=== PATIENT | female | born 1995 | race Two or more races ===

== ENCOUNTER 2016-06-22 09:59 | Outpatient (CLI) | payer OTHER | END 2016-06-22 10:00 | disposition home or self-care (01) | DX: Z36 Encounter for antenatal screening of mother (principal); Z3A.10 10 weeks gestation of pregnancy; Z34.01 Encounter for supervision of normal first pregnancy, first trimester ==

== ENCOUNTER 2016-07-04 13:42 | Outpatient (CLI) | payer OTHER | END 2016-07-04 13:43 | disposition home or self-care (01) | DX: Z20.1 Contact with and (suspected) exposure to tuberculosis (principal) ==

== ENCOUNTER 2016-08-07 07:19 | Outpatient (CLI) | payer OTHER | END 2016-08-07 07:20 | disposition home or self-care (01) | DX: Z34.82 Encounter for supervision of other normal pregnancy, second trimester (principal) ==

== ENCOUNTER 2016-09-28 09:50 | Outpatient (CLI) | payer OTHER | END 2016-09-28 09:51 | disposition home or self-care (01) | DX: Z36 Encounter for antenatal screening of mother (principal) ==

== ENCOUNTER 2016-10-04 13:24 | Outpatient (CLI) | payer OTHER | END 2016-10-04 13:25 | disposition home or self-care (01) | DX: Z36 Encounter for antenatal screening of mother (principal) ==

== ENCOUNTER 2016-10-05 09:56 | Outpatient (CLI) | payer OTHER | END 2016-10-05 09:57 | disposition home or self-care (01) | DX: Z36 Encounter for antenatal screening of mother (principal) ==

== ENCOUNTER 2016-11-24 08:00 | Outpatient (CLI) | payer OTHER | END 2016-11-24 08:01 | disposition home or self-care (01) | LOC: LAB.R 08:00 | PROVIDERS: ATTEND Nurse Practitioner Obstetrics & Gynecology | DX: Z36 Encounter for antenatal screening of mother (principal) | CPT/HCPCS: 87081 ==

== ENCOUNTER 2016-11-29 14:34 | Outpatient (CLI) | payer OTHER ==
--- NOTE | 2016-11-30 08:12 | Ultrasound Report ---
OB FOLLOWUP: 11/29/2016 CLINICAL HISTORY: growth and screening. TECHNIQUE: Real-time scanning was performed with client relations representative static images obtained. LAST MENSTRUAL PERIOD 03/13/2016 Clinical Age 37 weeks 2 days US Age 36 weeks 6 days EFW Hadlock 3377 g EFW% Hadlock 70.59% Heart Rate 146 bpm EDC 12/18/2016 US EDC 12/21/2016 BPD Hadlock --weeks - days; Mean mm 70.5 HC Hadlock -- weeks - days; Mean mm 350.6 AC Hadlock 37 weeks 1 day; Mean mm 332.9 FL Hadlock 36 weeks 4 days; Mean mm 71.4 Presentation cephalic Placental Location anterior Cervical Length 3.1 cm Amniotic Fluid 20.7 cm FINDINGS: A single fetus is noted in vertex position. Composite gestational age by ultrasound today is 36 weeks 6 days. EDC by ultrasound today is 12/21/2016. The present gestational age is only 3 days less advanced than expected as calculated from initial ultrasound exam. This degree of growth is within normal limits. Estimated weight today is 3377 grams. This is in the 70.59 percentile for expected gestational age. heart rate is 146 beats per minute. At this stage in gestation, anatomy is not optimally visualized. The head, body, four-chamber view of the heart, and bladder show no significant abnormality. The placenta is anterior. The amount of amniotic fluid is at the upper limits of normal measuring 20.7 cm. movement was noted during scan. IMPRESSION: 1. SINGLE FETUS IS NOTED IN VERTEX POSITION. PRESENT GESTATIONAL AGE BY ULTRASOUND TODAY IS 36 WEEKS 6 DAYS. PRESENT GESTATIONAL AGE IS ONLY 3 DAYS LESS ADVANCED THAN EXPECTED CALCULATED FROM INITIAL ULTRASOUND EXAM. THIS DEGREE OF GROWTH IS WITHIN NORMAL LIMITS. 2. WEIGHT IS IN THE 70.59 PERCENTILE FOR EXPECTED GESTATIONAL AGE. THIS IS WITHIN NORMAL LIMITS. 3. ANATOMY SHOWED NO OBVIOUS ABNORMALITY ON TODAY'S EXAM. 4. ANTERIOR GRADE 2 PLACENTA IS NOTED. 5. AMNIOTIC FLUID VOLUME INDEX IS AT THE UPPER LIMITS OF NORMAL MEASURING 20.7 CM. MTDD
== END 2016-11-29 14:35 | disposition home or self-care (01) ==
LOC: DI 14:34
PROVIDERS: ATTEND Nurse Practitioner Obstetrics & Gynecology
DX: Z36 Encounter for antenatal screening of mother (principal)
CPT/HCPCS: 76816

== ENCOUNTER 2016-12-15 12:50 | Outpatient (CLI) | payer OTHER, MEDICAID ==
[2016-12-15 13:46] LABS: BILIRUBIN,URINE NEGATIVE (NEGATIVE)
[2016-12-15 13:47] LABS: UA CHARGE (STRIP ONLY) YES; UR CULTURE IF IND NOT INDICATED
[2016-12-15 13:59] LABS: EOSINOPHILS # (AUTO) 0.2 10^3/uL (0.0-0.7); HGB - HEMOGLOBIN 12.5 g/dL (12.0-16.0); LYMPHOCYTES # (AUTO) 1.5 10^3/uL (1.5-3.5); MONOCYTES # (AUTO) 0.7 10^3/uL (0.0-1.0); MONOCYTES % (AUTO) 6.1 %; NEUTROPHILS # (AUTO) 9.6 10^3/uL (1.5-6.6)
[2016-12-15 14:14] VITALS: BP 130/80
[2016-12-15 14:20] LABS: BASOPHILS % (AUTO) 0.2 %; EOSINOPHILS % (AUTO) 1.9 %; HCT - HEMATOCRIT 36.7 % (37.0-47.0); LYMPHOCYTES % (AUTO) 12.4 %; MEAN CORPUSCULAR HEMOGLOBIN 30.2 pg (27.0-31.0); MEAN CORPUSCULAR HGB CONC 34.1 g/dL (32.0-36.0); MEAN CORPUSCULAR VOLUME 88.7 fL (81.0-99.0); MEAN PLATELET VOLUME 9.8 fL (7.9-10.8); NEUTROPHILS % (AUTO) 79.4 %; RED BLOOD COUNT 4.14 10^6/uL (4.20-5.40); RED CELL DISTRIBUTION WIDTH 13.9 % (12.0-15.0); UNCORRECTED WHITE BLOOD COUNT 12.1 x10^3/uL; WHITE BLOOD COUNT 12.1 x10^3/uL (4.8-10.8)
[2016-12-15 14:37] LABS: PLATELET ESTIMATE, MANUAL NORMAL (130-450,000) (NORMAL)
[2016-12-15] MEDS ORDERED: ACETAMINOPHEN 500 MG TABLET PO ONE (15:00)
== END 2016-12-15 14:40 | disposition home or self-care (01) ==
LOC: WFO 12:50 → OB 12:52 → WFO 14:40
PROVIDERS: ATTEND Nurse Practitioner Obstetrics & Gynecology
DX: O99.89 Other specified diseases and conditions complicating pregnancy, childbirth and the puerperium (principal); R51 Headache; Z3A.38 38 weeks gestation of pregnancy
CPT/HCPCS: 36415; 59025; 81003; 82570; 83615; 84156; 84450; 84550; 85025; A9270; 81001; 87086

== ENCOUNTER 2016-12-18 07:06 | Outpatient (CLI) | payer OTHER ==
[2016-12-18 07:37] VITALS: BP 138/86
== END 2016-12-18 09:15 | disposition home or self-care (01) ==
LOC: WFO 07:06 → OB 07:07 → WFO 09:15
PROVIDERS: ATTEND Nurse Practitioner Obstetrics & Gynecology
DX: Z34.03 Encounter for supervision of normal first pregnancy, third trimester (principal)
CPT/HCPCS: 99213

== ENCOUNTER 2016-12-18 19:20 | Inpatient (IN) | payer OTHER, MEDICAID ==
[2016-12-18] MEDS ORDERED: fentaNYL 100 MCG/2 ML VIAL IVP PRN (20:04)
[2016-12-18] MEDS ORDERED: SODIUM CHLORIDE FLUSH 0.9% 10 ML SYRINGE IVP PRN (21:32)
[2016-12-18] MEDS ORDERED: SODIUM CHLORIDE 0.9% 10 ML ONE (21:35)
[2016-12-18 22:03] LABS: BASOPHILS % (AUTO) 0.2 %; EOSINOPHILS % (AUTO) 0.3 %; HCT - HEMATOCRIT 40.5 % (37.0-47.0); HGB - HEMOGLOBIN 13.7 g/dL (12.0-16.0); LYMPHOCYTES % (AUTO) 6.8 %; MEAN CORPUSCULAR HEMOGLOBIN 30.4 pg (27.0-31.0); MEAN CORPUSCULAR HGB CONC 33.7 g/dL (32.0-36.0); MEAN CORPUSCULAR VOLUME 90.2 fL (81.0-99.0); MEAN PLATELET VOLUME 9.5 fL (7.9-10.8); MONOCYTES % (AUTO) 4.5 %; NEUTROPHILS % (AUTO) 88.2 %; RED BLOOD COUNT 4.49 10^6/uL (4.20-5.40); UNCORRECTED WHITE BLOOD COUNT 21.9 x10^3/uL; WHITE BLOOD COUNT 21.9 x10^3/uL (4.8-10.8)
--- NOTE | 2016-12-18 22:27 | HISTORY & PHYSICAL EXAMINATION ---
Admit History - Instructions Qagan [place]agungin/Slash: -Left hand click circles element as positive or present. -Right hand click slashes element as negative or not present. - Visit Reason Visit Reason: Contractions - : 1 Parity: 0 Premature: 0 Ectopic: 0 : 0 Care: positive: [facility] Risk/History: positive: None Complications This : positive: None Smoking Status: Never smoker - Mother's Labs Mother's Blood Type: positive: O Mother's RH: positive: Positive GBS: positive: Group B Step Negative Rubella Status: positive: Immune - Other Maternal History Other Maternal History: HPI: This 21yo @ 39.2wks gestation by L=10.3 wk U/S presents for contractions. Upon evaluation she was noted to be 2-3/25/0, posterior. [facility]. She then progressed to 4-5 cm dilated. She was admited to L&D for management. Dating criteria: 1.) LMP 03/18/2016 2.) First ultrasound 05/24/16 @ 10.3wks -agrees 3.) First exam 05/24/16 @ 10.3wks - agrees 4.) Serial exams @ 13.5 - 38 wks -agrees OB History: G1: Current [employer] History: Menarche age 11, Menses <21 days STD's none, [employer] surgeries: none Abnormal paps and treatment: No Hx abnormal paps. Last pap 11/2015-WNL PMH: Anxiety - d/c Lexapro with + test PSHx: none Social Hx: Never smoker, no ETOH or IVDA. Benedict Hernandez Family Hx: Asthma- brother; colon cancer- maternal GM age 53; Autism - FOB's brother Meds: PNV, colace 100mg Allergies: NKA Early labs: 07/02/2016 Blood type: O positive, Antibody neg Hgb 13.1, Hct 38.7, PLT 153 Rubella: immune HIV: non-reactive GC/CT neg (05/30/2016) Hep B: neg Treponema: non-reactive TB: PPD neg; Quant Gold neg Tdap 11/02/2016 Influenza 04/05/2016 28wk labs: Hgb 12.4 Antibody neg 1 hour GTT: 134 GBS negative 10/08/2016: LDH 139 creatinine 0.4 GFR 198 Glucose 85 Uric acid 4.5 AST 20 Hgb A1C 5.1 Ur Cr 92.1 Ur total protein 8 Ur pr/cr 0.1 12/15/2016: Uric acid: 5.0 AST 18 LDH 121 Urine negative protein Urine Cr 51.8 Urine total protein: <6 Ultrasounds: 08/14/2016: FAS WNL except suboptimal visualization of spine. Placenta anterior, no previa, JACQUELINE WNL, size c/w LMP dating. 10/08/2016 f/u U/S: FAS completion WNL, size c/w LMP dating. JACQUELINE WNL. 11/29/2016 growth and JACQUELINE U/S indicated for size > dates: Size c/w dating. weight 70.59 percentile. Anterior, grade 2 placenta. JACQUELINE 20.7. EFW 3377g. Meds/Allgy - Home Medications Home Medications: Ambulatory Orders Medication Instructions Recorded Confirmed Cyclobenzaprine [Flexeril] 10 mg PO TID PRN #20 tablet 03/06/15 predniSONE [Deltasone] 40 mg PO DAILY 5 Days 03/06/15 - Allergies Allergies/Adverse Reactions: Allergies Allergy/AdvReac Type Severity Reaction Status Date / Time No Known Drug Allergies Allergy Verified 03/06/15 07:54 Physical - Abdominal Exam Vital Signs: Temp Pulse Resp BP Pulse Ox 36.8 C 100 24 125/74 100 12/18/16 19:44 12/18/16 19:44 12/18/16 19:44 12/18/16 19:44 12/18/16 19:44
[2016-12-18] MEDS: LACTATED RINGERS 1,000 ML IV SCH (22:28)
[2016-12-18 22:44] LABS: BAND NEUTROPHILS % (MANUAL) 7 %; BASOPHILS % (MANUAL) 1 %; EOSINOPHILS % (MANUAL) 1 %; LYMPHOCYTES % (MANUAL) 10 %; NEUTROPHILS % (MANUAL) 80 %; PLATELET ESTIMATE, MANUAL NORMAL (130-450,000) (NORMAL); PLATELET MORPHOLOGY NORMAL APPEARANCE (NORMAL); TOTAL CELLS COUNTED 100
--- NOTE | 2016-12-18 22:55 | PROVIDER PROGRESS NOTE ---
Labor Progress Note - Uterine Monitoring Uterine Monitoring Mode: positive: External toco Contraction Frequency (min/apart): 3-5 Contraction Intensity: positive: Strong Uterine Resting Tone: positive: Soft - Monitoring Heart Rate Baseline: 140 Heart Rate Variability: positive: Moderate (6-25 bmp) Accelerations: positive: Present, 15x15 Decelerations: positive: None Strip Review: positive: Category I - Vaginal Exam Dilation (in cm): 4-5 Effacement (%): 100 Station: 0 Cervical Position: Midposition - Labor Progress Note Labor Progress Note/Additional Text: S: Pt sitting up for epidural. Crying through contractions. supportive at bedside. A: 21yo @ 39.3wks by L=10.3wk U/S Active labor P: Dr. Bustamante notified of patient admission. Epidural per maternal request Continuous monitoring Recheck SVE when patient comfortable with epidural Anticipate spontaneous vaginal delivery
[2016-12-18] MEDS ORDERED: fent/BUPIV 2 MCG/0.125% 250 ML EP ONE (23:11)
[2016-12-18 23:12] LABS: NP AUTO DIFFERENTIAL? YES; NP MAN DIFFERENTIAL? NO
[2016-12-18] MEDS ORDERED: LACTATED RINGERS 500 ML IV ONE (23:35)
[2016-12-18] MEDS ORDERED: fent/BUPIV 2 MCG/0.125% 250 ML EP PRN (23:35)
[2016-12-18] MEDS ORDERED: diphenhydrAMINE INJ 50 MG/ML VIAL IVP PRN (23:35)
[2016-12-18] MEDS ORDERED: METOCLOPRAMIDE 10 MG/2 ML VIAL IVP PRN (23:35)
[2016-12-18] MEDS ORDERED: NALBUPHINE 20 MG/ML AMP IVP PRN (23:35)
[2016-12-18] MEDS ORDERED: ONDANSETRON 4 MG/2 ML VIAL IVP PRN (23:35)
[2016-12-18] MEDS ORDERED: NALOXONE 0.4 MG/ML VIAL IVP PRN (23:35)
[2016-12-18] MEDS ORDERED: ePHEDrine 50 MG/ML AMP IVP PRN (23:35)
[2016-12-19] MEDS: LACTATED RINGERS 1,000 ML IV SCH (01:24)
[2016-12-19] MEDS ORDERED: OXYTOCIN/LACTATED RINGERS 250 ML IV ONE ×2 (01:58→06:18)
[2016-12-19] MEDS ORDERED: LIDOCAINE 1% 50 ML MDV ONE (01:58)
[2016-12-19] MEDS ORDERED: miSOPROStol 200 MCG TABLET ONE (01:58)
[2016-12-19] MEDS ORDERED: MINERAL OIL LIGHT 10 ML MC ONE (01:58)
--- NOTE | 2016-12-19 02:32 | PROVIDER PROGRESS NOTE ---
Labor Progress Note - Uterine Monitoring Uterine Monitoring Mode: positive: External toco Contraction Frequency (min/apart): 2-8 Contraction Intensity: positive: Strong Uterine Resting Tone: positive: Soft - Monitoring Monitor Mode: positive: External ultrasound Heart Rate Baseline: 140 Heart Rate Variability: positive: Moderate (6-25 bmp) Accelerations: positive: Present, 15x15 Decelerations: positive: None Strip Review: positive: Category I - Vaginal Exam Dilation (in cm): 9 Effacement (%): 100 Station: 0 Cervical Position: Anterior
--- NOTE | 2016-12-19 04:47 | PROVIDER PROGRESS NOTE ---
Labor Progress Note - Uterine Monitoring Uterine Monitoring Mode: positive: External toco Contraction Frequency (min/apart): 5-7 Contraction Intensity: positive: Strong Uterine Resting Tone: positive: Soft - Monitoring Heart Rate Baseline: 150 Heart Rate Variability: positive: Moderate (6-25 bmp) Accelerations: positive: Present, 15x15 Decelerations: positive: Early Strip Review: positive: Category I - Vaginal Exam Station: -1 - Labor Progress Note Labor Progress Note/Additional Text: S: Feeling some contractions. Using bolus button for epidural. and mom supportive at the bedside. O: Pt afebrile. FHR baseline 150, moderate variability, pos accels, early decelerations. Contractions palpate firm every 5-7 minutes. Pitocin at 2 in attempt to maintain more consistent contraction pattern. A: 21yo @ 39.3wks gestation by L=10 GBS neg SROM x 3.5hrs - clear fluid P: Continue pitocin per protocol to maintain consistent contractions pattern every 2-4 minutes. Stool at bedside and nursing staff aware of potential for shoulder dystocia. Anticipate spontaneous vaginal delivery.
[2016-12-19] MEDS ORDERED: WITCH HAZEL/GLYCERIN 1 EACH MED..PAD TOP PRN (06:18)
--- NOTE | 2016-12-19 06:30 | DELIVERY NOTE ---
Delivery Note - Labor Labor: positive: Spontaneous - Delivery Method Delivery Method: positive: Spontaneous vaginal delivery - Presentation Presentation: positive: Vertex, YOLANDA - left occiput anterior - Nuchal Cord Nuchal Cord: positive: None - Anesthetic Anesthetic Type: - Amniotic Fluid Description Amniotic Fluid Description: positive: Clear - Laceration Laceration: positive: 1st degree - Suture Suture Type: positive: Vicryl Suture Size: positive: 3-0 - Delivery Outcome Delivery Outcome: positive: Livebirth - [place]: positive: Placed in direct skin contact with mother, Bulb syringe, Stimulated, Warmed, Porter used [place] sex: positive: Male - Cord Cord: positive: 3 vessels - Placenta Placenta: positive: Intact, Spontaneous - Estimated Blood Loss Estimated Blood Loss (in cc): 400 - Post Delivery Events Post Delivery Events: positive: No post delivery events - Delivery Comments (Free Text/Narrative) Delivery Comments (Free Text/Narrative): Labor: This 21yo @ 39.3wks gestation by L=10.3wk U/S presented @ approximately 1900 in early labor. Cervix was 2-3/50/0, posterior. She was able to get into the jacuzzi and an hour later re-check was 4-5/100/0 and vertex, and patient requested additional pain management. FHR baseline 140s and demonstrated category I pattern. Normal labor course. Epidural placed upon maternal request. SROM occurred at approximately 0100 and was noted to be a small amount of clear fluid. : Normal SVB of a viable male infant. No nuchal. 's 9/9 at 1 and 5 min respectively at 0545 on 12/19/2016. The was placed on maternal abdomen, stimulated, dried, and placed skin to skin. The umbilical cord was doubly clamped and cut by patient. Cord blood was obtained. Placenta delivered spontaneously and intact at 0550. 3VC. Pitocin was administered via IV for hemostasis. EBL 400mL. Uterine fundus firm with no excessive bleeding. The perineum, vagina, and cervix were inspected and found to have 1st degree laceration inside the vagina which was repaired in standard fashion under sterile conditions using 3-[address]-1 needle. In addition there was a minor right periurethral laceration that was left unrepaired due to it's small size, relative hemostasis , and proximity to urethra. Vaginal examination following the repair was done. Tissues well approximated. Family bonding well. Both mother and baby were left in stable condition.
[2016-12-19] MEDS: ACETAMINOPHEN 500 MG TABLET PO SCH ×3 (07:55→23:58)
[2016-12-19] MEDS: IBUPROFEN 800 MG TABLET PO SCH ×3 (07:55→21:41)
[2016-12-19] MEDS: HYDROCORTISONE/PRAMOXINE 10 GM PR PRN (07:55)
[2016-12-19] MEDS: DOCUSATE SODIUM 100 MG CAPSULE PO SCH ×2 (15:35→20:55)
[2016-12-20] MEDS: IBUPROFEN 800 MG TABLET PO SCH ×4 (03:15→21:26)
[2016-12-20] MEDS: SODIUM CHLORIDE FLUSH 0.9% 10 ML SYRINGE IVP SCH ×3 (04:53→20:05)
[2016-12-20] MEDS: LACTATED RINGERS 1,000 ML IV SCH ×3 (04:54→20:05)
--- NOTE | 2016-12-20 08:47 | PROVIDER PROGRESS NOTE ---
Subjective - Prog Note Date Prog Note Date: 12/20/16 Prog Note Time: 08:44 - Subjective Pt reports feeling: Improved Subjective: Clara is sitting in bed. Baby in bassinet. Clara ambulating and tolerating regular diet. Urinating without difficulty and pain controlled with NSAIDs. Baby having difficulty with latching. Objective - Vital Signs/Intake & Output Reviewed Vital Signs: Yes Vital Signs: Vital Signs x48h Temp Pulse Resp BP Pulse Ox 12/20/16 08:21 97.7 F 97 18 133/74 H 100 12/20/16 04:25 97.9 F 90 18 120/56 L 100 Intake & Output: Intake & Output 12/17/16 12/18/16 12/19/16 12/20/16 23:59 23:59 23:59 23:59 Intake Total 800 Output Total 725 Balance 75 - Objective General Appearance: positive: No acute distress Abdomen: positive: Non-tender (Firm fundus) Neurologic/Psychiatric: positive: Oriented x3 - Lab Results Fish Bones: 12/18/16 21:50 Assessment/Plan - Problem List (1) Vaginal delivery Impression: 21 yo S/p 12/19/2016, PPD #1 Normal recovery Routine care Anticipate discharge to home tomorrow.
[2016-12-20] MEDS: ACETAMINOPHEN 500 MG TABLET PO SCH ×2 (10:05→18:58)
[2016-12-20] MEDS: DOCUSATE SODIUM 100 MG CAPSULE PO SCH ×2 (10:06→21:27)
[2016-12-20] MEDS: HYDROCORTISONE/PRAMOXINE 10 GM PR PRN (21:24)
[2016-12-21] MEDS: IBUPROFEN 800 MG TABLET PO SCH ×3 (03:06→18:39)
[2016-12-21] MEDS: ACETAMINOPHEN 500 MG TABLET PO SCH ×3 (03:06→18:38)
--- NOTE | 2016-12-21 08:32 | Discharge Plan ---
Discharge Plan Disposition: 01 Home, Self Care Condition: Good Diet: Regular Activity Restrictions: No Restrictions Shower Restrictions: No Driving Restrictions: No Weight Bearing: Full Weight Additional Instructions or Follow Up instructions: S: Bonding well with baby. Sitting up in bed with baby in bassinet. Baby likely going under lina lights today. and stepson at bedside. Pain well controlled with ibuprofen and tylenol. Bleeding decreased and is light. O: Heart RRR w/o M/G/R, lungs CTAB. Abdomen soft and non-tender. Fundus firm at U-2. Bilateral LE's no edema. A: 21yo -->P1 s/p TSVD at 39.3wks P: Reviewed pp self care and warning signs. Will discharge to boarder status due to baby going under lina lights today. Rx handwritten and provided to pt for Ibuprofen 800mg 1 tab PO q 8 hrs PRN pain X 60 with 1 refill and Colace 100mg sig 1 tab PO prn constipation #60 with 1 refill. Pt planning mini pill for contraception at 6 weeks pp. She verbalized understanding and agrees to above plan. Denies further questions or concerns today. F/u with myself in the clinic at 2 and 6 weeks. No Smoking: If you smoke, Please STOP! Call for help. Follow-up with: Jazmyne Funes CNM, ANITA [Provider Admit Priv/Credential] -
[2016-12-21] MEDS: DOCUSATE SODIUM 100 MG CAPSULE PO SCH (10:13)
[2016-12-21] MEDS: HYDROCORTISONE/PRAMOXINE 10 GM PR PRN (18:38)
[2016-12-21 18:59] VITALS: BP 128/69
--- NOTE | 2016-12-21 19:01 | Labor Flowsheet ---
Labor Flowsheet Datetime Report Generated by CPN: 12/21/2016 19:00 Datetime: 12/21/2016 07:53 VITAL SIGNS NBP Sys/Ingris/Mean (mmHg): 125 : 68 : 82 Pulse: 90 LaborFlag: Labor Datetime: 12/19/2016 15:16 Temperature (F): 97.9 Temperature (C): 36.6 Temperature (C): 36.6 Datetime: 12/19/2016 06:45 SpO2 (%): 99 Datetime: 12/19/2016 05:45 UTERINE ACTIVITY Monitor Mode: External Frequency (min): 2-5 Quality: Strong Duration (sec): 60-90 Resting Tone (Palpate): Relaxed ASSESSMENT A Monitor Mode: External US FHR Baseline Rate : 160 Variability: Moderate 6-25 bpm Accelerations: None Decelerations: Variable Category: Category II Comments: of a viable male . RN remained with patient throughout all of pushing. RN adj usting US monitor frequently. EFM tracing within view at all times. CNM with patient for the majori ty of pushing. Datetime: 12/19/2016 05:15 MEDICATIONS Pitocin (milliunits): Increased to @ Datetime: 12/19/2016 05:07 Patient Position/Activity: Low Fowlers Datetime: 12/19/2016 02:45 Monitor Interventions for UA: [place] Adjusted Datetime: 12/19/2016 02:35 PATIENT CARE IV/Blood Work: . COMMUNICATION Communication: Provider at Bedside Datetime: 12/19/2016 02:20 VAGINAL EXAM Dilatation (cm): 10.0 Effacement (%): 100 Station: 0 Exam by: Mona Serenity RNC Membrane Status: Ruptured Datetime: 12/19/2016 02:00 Monitor Interventions for FHR: Ultrasound Adjusted Datetime: 12/19/2016 01:55 Procedures: Sterile Vag Exam Comfort Measures: Breathing/Relaxation Hygiene: Usha Care; Underpad Changed I/O Interventions: Straight Cath (ml) @ Datetime: 12/19/2016 01:50 Vaginal Bleeding: Normal Show Datetime: 12/19/2016 01:25 Membranes Ruptured Date/Time: 12/19/2016 01:25 Membranes Rupture Method: Spontaneous Amniotic Fluid Color: Clear Amniotic Fluid Amount: Small Amniotic Fluid Odor: Normal Datetime: 12/19/2016 01:00 Pattern: Normal: <= 5 Contractions in 10 Minutes Datetime: 12/19/2016 00:30 Contraction Comments: inverted, not reading well when patient lateral. Datetime: 12/19/2016 00:16 Respirations: 16 Temperature Route: Oral PAIN Pain Scale: 0 Pain Presence: None/Denies Pain Type: N/A Pain Relief Measures: Epidural Given Anesthesia Level Check: T9 Datetime: 12/18/2016 23:23 Epidural Procedure Other: Pump Started Datetime: 12/18/2016 23:05 ANESTHESIA Anesthesia Plans: Epidural Epidural Procedure: Loading Dose Datetime: 12/18/2016 22:45 Consults: Anesthesia PROCEDURE TIME OUT Procedure Type: Epidural Procedure Verify: Correct Patient Identity; Accurate Procedure Consent Form; Agreement on Procedure to be Done; Correct Patient Position; Relevant Images and Results are Properly Labeled and Displayed ; Safety Precautions Based on Patient History or Medication Use Anesthesia Interview: E Epidural Positioning: Sitting Anesthesia Comments: Obtaining consent, risks and benefits explained Datetime: 12/18/2016 22:15 Provider Reviewed Strip: Yes Strip Reviewed by: Jazmyne Funes CNM Datetime: 12/18/2016 21:55 Analgesics/Sedatives: Fentanyl (mcg) @
--- NOTE | 2016-12-25 09:05 | DISCHARGE SUMMARY ---
DATE OF ADMISSION: 12/18/2016 DATE OF DISCHARGE: 12/21/2016 DIAGNOSES ON ADMISSION: 1. A 21-year-old G1, P0-0-0-0 at 39.2 weeks gestation. 2. Early labor. DIAGNOSES ON DISCHARGE: 1. A 21-year-old G1, P1-0-0-0, status post spontaneous vaginal delivery on 12/19/2016. BRIEF HISTORY: She is a patient at [facility] who presented on 12/18/2016 for contra ctions. Upon evaluation she was noted to be 2 degrees cm dilated, 25% effaced, 0 station. She then pr ogressed to 4 to 5 cm dilated and was admitted to Labor and Delivery for management. She spontaneousl y delivered a viable male infant named Major. 's were 9 and 9 at 1 and 5 minutes respectively. At 0545 on 12/19/2016. Estimated blood loss 400 mL. A first degree laceration was repaired in the sta ndard fashion under sterile condition using 3-0 Vicryl on a CT1 needle. In addition there was a minor right periurethral laceration that was left unrepaired due to its small size, relative hemostasis, p roximity to the urethra. She has been doing well in her course. She is ambulating and tolerating a regular diet. Og cortez is urinating without difficulty and her lochia is normal. Her pain is well controlled with oral med ications. She will be discharged home today on day #2 with prescriptions for Ibuprofen and Colace. She knows to followup with myself at [facility] in 2 weeks. She has been gi kings precautions to call if she has any worsening fevers, chills, abdominal pain, increased bleeding o r foul smelling vaginal lochia. JOB #: [id number] EXT JOB #:[id number]
== END 2016-12-21 18:50 | disposition home or self-care (01) | DRG 775 ==
LOC: WFO 19:20 → OB 19:30 → WFO 21:31 → UNDOADMIN 21:32 → OB 21:32
PROVIDERS: ADMIT Nurse Practitioner Obstetrics & Gynecology; ATTEND Nurse Practitioner Obstetrics & Gynecology
PROC: 10E0XZZ Delivery of Products of Conception, External Approach (ICD-10-PCS; principal; 2016-12-19)
PROC: 0HQ9XZZ Repair Perineum Skin, External Approach (ICD-10-PCS; 2016-12-19)
DX: O99.344 Other mental disorders complicating childbirth (principal); O70.0 First degree perineal laceration during delivery; O76 Abnormality in fetal heart rate and rhythm complicating labor and delivery; F41.9 Anxiety disorder, unspecified; Z3A.39 39 weeks gestation of pregnancy; Z37.0 Single live birth
CPT/HCPCS: 36415; 85025; 99213

== ENCOUNTER 2017-07-04 19:49 | Emergency (ER) | payer MEDICAID, OTHER ==
[2017-07-04 19:58] VITALS: BP 137/76
--- NOTE | 2017-07-04 21:49 | ED Physician Documentation ---
PD HPI SKIN - Stated complaint Stated Complaint: TOE NAIL PX - Chief complaint Chief Complaint: Wound - History obtained from History obtained from: Patient (pt is here for evaluation of left great toe pain. she staes that it started a couple days ago. never had an ingrowing toenail in the past. states that she has had similar sx to this but they have "taken care of themselves" .) Review of Systems Constitutional: denies: Fever Skin: reports: Other (redness to the great toe) Musculoskeletal: reports: Other (left great toe pain) Neurologic: denies: Focal weakness, Numbness PD PAST MEDICAL HISTORY - Past Medical History Past Medical History: No - Past Surgical History Past Surgical History: No - Present Medications Home Medications: Ambulatory Orders Medication Instructions Recorded Confirmed Cephalexin [Keflex] 500 mg PO Q6HR #20 capsule 07/04/17 - Allergies Allergies/Adverse Reactions: Allergies Allergy/AdvReac Type Severity Reaction Status Date / Time No Known Drug Allergies Allergy Verified 07/04/17 19:56 - Social History Does the pt smoke?: No Smoking Status: Never smoker Does the pt drink ETOH?: Yes Does the pt have substance abuse?: No - Immunizations Immunizations are current?: Yes - POLST Patient has POLST: No PD ED PE NORMAL - Vitals Vital signs reviewed: Yes - General General: Alert and oriented X 3, No acute distress - Cardiac Cardiac: Strong equal pulses (DP) - Respiratory Respiratory: No respiratory distress - Derm Derm: Other (redness to the lateral aspect of the left great toenail ) - Extremities Extremities: Other (redness to the left great toe. ) - Neuro Neuro: Alert and oriented X 3 - Psych Psych: Normal mood, Normal affect Results - Vitals Vitals: Vital Signs - 24 hr 07/04/17 19:56 Temperature 36.0 C L Heart Rate 77 Respiratory 15 Rate Blood Pressure 137/76 H O2 Saturation 98 Oxygen O2 Source Room air PD MEDICAL DECISION MAKING - ED course Complexity details: d/w patient ED course: pt with hx and PE C/W an ingrowing toenail. discussed options with the patient. she opted to not have me remove it today to see if it improved on its own. I told her that it may not improve and that if it didn't she needed to be seen to have it removed. will send home with ABX because of the slight cellulitis around the area. Departure - Departure Disposition: 01 Home, Self Care Clinical Impression: Ingrown toenail Condition: Good Instructions: Ingrown Toenails Follow-Up: Xochitl Salguero PA-C [Primary Care Provider] - Prescriptions: Cephalexin [Keflex] 500 mg PO Q6HR #20 capsule Comments: take the medications as directed. Return to the ER or your primary care provider to have the nail removed if does not improve.
== END 2017-07-04 21:53 | disposition home or self-care (01) ==
LOC: ED 19:49
DX: L60.0 Ingrowing nail (principal)
CPT/HCPCS: 99283

== ENCOUNTER 2018-02-17 09:02 | Outpatient (CLI) | payer OTHER ==
[2018-02-17 13:51] LABS: BASOPHILS % (AUTO) 0.4 %; EOSINOPHILS # (AUTO) 0.1 10^3/uL (0.0-0.7); EOSINOPHILS % (AUTO) 2.5 %; HGB - HEMOGLOBIN 13.7 g/dL (12.0-16.0); LYMPHOCYTES # (AUTO) 1.5 10^3/uL (1.5-3.5); LYMPHOCYTES % (AUTO) 27.3 %; MEAN CORPUSCULAR HEMOGLOBIN 30.1 pg (27.0-31.0); MEAN CORPUSCULAR HGB CONC 34.1 g/dL (32.0-36.0); MEAN CORPUSCULAR VOLUME 88.2 fL (81.0-99.0); MEAN PLATELET VOLUME 9.8 fL (7.9-10.8); MONOCYTES # (AUTO) 0.3 10^3/uL (0.0-1.0); MONOCYTES % (AUTO) 5.1 %; NEUTROPHILS # (AUTO) 3.6 10^3/uL (1.5-6.6); NEUTROPHILS % (AUTO) 64.7 %; PLT - PLATELET COUNT 161 10^3/uL (130-450); RED BLOOD COUNT 4.57 10^6/uL (4.20-5.40); RED CELL DISTRIBUTION WIDTH 13.2 % (12.0-15.0); WHITE BLOOD COUNT 5.5 x10^3/uL (4.8-10.8)
[2018-02-17 13:52] LABS: ALBUMIN 3.9 g/dL (3.2-5.5); ALBUMIN/GLOBULIN RATIO 1.1 (1.0-2.2); ALKALINE PHOSPHATASE 46 IU/L (42-121); ALT ALANINE AMINOTRANSFERASE 13 IU/L (10-60); AST ASPARTATE AMINOTRANSFERASE 18 IU/L (10-42); BILIRUBIN,TOTAL 0.3 mg/dL (0.2-1.0); BUN - BLOOD UREA NITROGEN 12 mg/dL (6-20); CALCIUM 8.8 mg/dL (8.5-10.3); CARBON DIOXIDE - CO2 26 mmol/L (21-32); CHLORIDE 107 mmol/L (101-111); CHOL/HDL RATIO 3.4 (<4.4); CHOLESTEROL 173 mg/dL; CREATININE 0.7 mg/dL (0.4-1.0); GFR - MDRD 103 (>89); GLUCOSE 99 mg/dL (70-100); HDL CHOLESTEROL 51 mg/dL; LDL CHOLESTEROL,CALCULATED 101 mg/dL; SODIUM 137 mmol/L (135-145); TOTAL PROTEIN 7.5 g/dL (6.7-8.2); VLDL CHOLESTEROL 21 mg/dL
[2018-02-17 14:59] LABS: HB2 TOTAL 14.8 g/dL; HEMOGLOBIN A1C 0.51 g/dL; HEMOGLOBIN A1C % 5.3 % (4.6-6.2)
== END 2018-02-17 09:03 | disposition home or self-care (01) ==
LOC: LAB.WCP 09:02
PROVIDERS: ATTEND Family Medicine
DX: Z00.00 Encounter for general adult medical examination without abnormal findings (principal); F32.9 Major depressive disorder, single episode, unspecified; F41.9 Anxiety disorder, unspecified
CPT/HCPCS: 36415; 80053; 80061; 83036; 83721; 84443; 85025

== ENCOUNTER 2018-06-24 20:36 | Outpatient (CLI) | payer MEDICAID, OTHER ==
--- NOTE | 2018-06-25 11:17 | Ultrasound Report ---
Reason: TEST POSITIVE Procedure Date: 06/24/2018 Accession Number: [id number] / [id number] Procedure: US - OB First Trimester CPT Code: FULL RESULT: EXAM: FIRST TRIMESTER OBSTETRIC ULTRASOUND (Less than 11 weeks) EXAM DATE: 06/24/2018 09:06 PM. CLINICAL HISTORY: 22-year-old female. TEST POSITIVE. LMP: 05/13/2018. COMPARISONS: OB F/U OR REPEAT 11/29/2016 3:14 PM. TECHNIQUE: Transabdominal and transvaginal ultrasound examination with static image documentation. CLINICAL DATES: EGA 6 weeks 0 days with HIGINIO 02/17/2019 based on LMP. ASSESSMENT: Gestational Sac: Single intrauterine. Mean gestational sac diameter: 22 mm. Embryo: CRL (crown-rump length) 4 mm = 6 weeks 2 days. Cardiac activity: 118 beats per minute. Yolk sac: 3 mm. Amniotic fluid: Not accurately assessed at this gestational age. Early placenta: Not visible at this gestational age. Other: Tiny 0.7 x 0.7 cm fundal perigestational fluid collection demonstrated. MATERNAL STRUCTURES: Uterus: Retroverted. Unremarkable. Cervix: Closed. Right Ovary/Adnexa: The ovary measures 2.1 x 1.5 x 2.3 cm, volume 3.8 cc. 1.4 x 1.1 cm ringlike mildly hyperechoic area, possible follicular scar. Left Ovary/Adnexa: The ovary measures 2.7 x 2.6 x 3.9 cm, volume 14 cc. 2.0 x 1.2 x 2.2 cm cyst with peripheral ring of vascularity on color Doppler ultrasound suggesting corpus luteum. Free Fluid: None. Other: None. IMPRESSION: 1. Single viable intrauterine at EGA 6 weeks 2 days with HIGINIO 02/15/2019 based on crown-rump length, which is concordant with clinical dates. 2. Assigned dating is HIGINIO 02/17/2019 based on LMP. JUSTO
== END 2018-06-24 20:37 | disposition home or self-care (01) ==
LOC: DI 20:36
PROVIDERS: ATTEND Nurse Practitioner Obstetrics & Gynecology
DX: Z32.01 Encounter for pregnancy test, result positive (principal)
CPT/HCPCS: 76801

== ENCOUNTER 2018-07-21 08:00 | Outpatient (CLI) | payer OTHER, MEDICAID ==
[2018-07-21 15:07] LABS: MUDS CUTOFF CONCENTRATIONS CUTOFF CONC BELOW:
[2018-07-21 15:42] LABS: AMPHETAMINE SCREEN,URINE NEGATIVE (NEGATIVE); BENZODIAZEPINES SCREEN, URINE NEGATIVE (NEGATIVE); COCAINE SCREEN URINE NEGATIVE (NEGATIVE); METHADONE SCREEN, URINE NEGATIVE (NEGATIVE); METHAMPHETAMINES SCREEN, URINE NEGATIVE (NEGATIVE); OPIATE SCREEN, URINE POSITIVE (NEGATIVE); OXYCODONE SCREEN, URINE NEGATIVE (NEGATIVE); PROPOXYPHENE SCREEN, URINE NEGATIVE (NEGATIVE); TRICYCLIC ANTIDEPRESSANT,URINE NEGATIVE (NEGATIVE)
== END 2018-07-21 23:59 | disposition home or self-care (01) ==
LOC: LAB.R 08:00
PROVIDERS: ATTEND Registered Nurse
DX: Z33.1 Pregnant state, incidental (principal)
CPT/HCPCS: 80306; 81001; 81003; 81599; 87086; 87491; 87591

== ENCOUNTER 2018-07-21 12:18 | Outpatient (CLI) | payer OTHER, MEDICAID ==
[2018-07-21 12:43] LABS: BASOPHILS # (AUTO) 0.1 10^3/uL (0.0-0.1); BASOPHILS % (AUTO) 0.6 %; EOSINOPHILS # (AUTO) 0.2 10^3/uL (0.0-0.7); EOSINOPHILS % (AUTO) 1.8 %; HGB - HEMOGLOBIN 13.9 g/dL (12.0-16.0); LYMPHOCYTES # (AUTO) 1.5 10^3/uL (1.5-3.5); LYMPHOCYTES % (AUTO) 15.3 %; MEAN CORPUSCULAR HEMOGLOBIN 30.7 pg (27.0-31.0); MEAN CORPUSCULAR HGB CONC 34.2 g/dL (32.0-36.0); MEAN CORPUSCULAR VOLUME 89.8 fL (81.0-99.0); MEAN PLATELET VOLUME 9.3 fL (7.9-10.8); MONOCYTES # (AUTO) 0.5 10^3/uL (0.0-1.0); MONOCYTES % (AUTO) 5.2 %; NEUTROPHILS # (AUTO) 7.4 10^3/uL (1.5-6.6); NEUTROPHILS % (AUTO) 77.1 %; PLT - PLATELET COUNT 185 10^3/uL (130-450); RED BLOOD COUNT 4.53 10^6/uL (4.20-5.40); RED CELL DISTRIBUTION WIDTH 12.7 % (12.0-15.0); WHITE BLOOD COUNT 9.6 x10^3/uL (4.8-10.8)
[2018-07-21 12:52] LABS: BILIRUBIN,URINE NEGATIVE (NEGATIVE); GLUCOSE, URINE (UA) NEGATIVE (NEGATIVE); KETONES,URINE (UA) NEGATIVE (NEGATIVE); LEUKOCYTE ESTERASE, URINE NEGATIVE (NEGATIVE); NITRITE,URINE NEGATIVE (NEGATIVE); OCCULT BLOOD,URINE NEGATIVE (NEGATIVE); PROTEIN,URINE NEGATIVE (NEGATIVE); UROBILINOGEN,URINE 0.2 (NORMAL) E.U./dL (NORMAL)
[2018-07-21 13:01] LABS: BACTERIA,URINE None Seen /HPF (None Seen); CLARITY,URINE CLEAR (CLEAR); RBC,URINE None Seen /HPF (0-5); SQUAMOUS EPITHELIAL CELL,UR FEW Squamous (<= Few)
[2018-07-22 12:11] LABS: HEPATITIS B SURFACE ANTIGEN NON-REACTIVE (NON-REACTIVE); HEPATITIS C ANTIBODY NON-REACTIVE (NON-REACTIVE)
[2018-07-22 14:41] LABS: HIV AG/AB 4TH GEN NON-REACTIVE (NON-REACTIVE)
== END 2018-07-21 12:19 | disposition home or self-care (01) ==
LOC: LAB 12:18
PROVIDERS: ATTEND Registered Nurse
DX: Z33.1 Pregnant state, incidental (principal)
CPT/HCPCS: 36415; 80306; 81001; 81599; 85025; 86592; 86762; 86803; 86850; 86900; 86901; 87086; 87340; 87389; 87491; 87591

== ENCOUNTER 2018-08-18 09:39 | Outpatient (CLI) | payer OTHER ==
[2018-08-18 15:04] LABS: MUDS CUTOFF CONCENTRATIONS CUTOFF CONC BELOW:
[2018-08-18 15:34] LABS: AMPHETAMINE SCREEN,URINE NEGATIVE (NEGATIVE); BENZODIAZEPINES SCREEN, URINE NEGATIVE (NEGATIVE); COCAINE SCREEN URINE NEGATIVE (NEGATIVE); METHADONE SCREEN, URINE NEGATIVE (NEGATIVE); METHAMPHETAMINES SCREEN, URINE NEGATIVE (NEGATIVE); OPIATE SCREEN, URINE NEGATIVE (NEGATIVE); OXYCODONE SCREEN, URINE NEGATIVE (NEGATIVE); PROPOXYPHENE SCREEN, URINE NEGATIVE (NEGATIVE); TRICYCLIC ANTIDEPRESSANT,URINE NEGATIVE (NEGATIVE)
== END 2018-08-18 23:59 | disposition home or self-care (01) ==
LOC: LAB.R 09:39
PROVIDERS: ATTEND Registered Nurse
DX: Z33.1 Pregnant state, incidental (principal)
CPT/HCPCS: 80306

== ENCOUNTER 2018-08-18 09:59 | Outpatient (CLI) | payer OTHER ==
[2018-08-18 13:00] LABS: HB2 TOTAL 13.4 g/dL; HEMOGLOBIN A1C 0.49 g/dL; HEMOGLOBIN A1C % 5.5 % (4.6-6.2)
== END 2018-08-18 10:00 | disposition home or self-care (01) ==
LOC: LAB 09:59
PROVIDERS: ATTEND Registered Nurse
DX: O99.210 Obesity complicating pregnancy, unspecified trimester (principal)
CPT/HCPCS: 36415; 82950; 83036

== ENCOUNTER 2018-09-29 07:42 | Outpatient (CLI) | payer OTHER ==
--- NOTE | 2018-09-29 14:02 | Ultrasound Report ---
Reason: ENCOUNTER FOR OTHER SPECIFIED SCREENING Procedure Date: 09/29/2018 Accession Number: [id number] / [id number] Procedure: US - OB Detailed Eval CPT Code: FULL RESULT: EXAM: COMPLETE OBSTETRICAL ULTRASOUND EXAM DATE: 09/29/2018 08:03 AM. CLINICAL HISTORY: anatomic survey. COMPARISON: OB FIRST TRIMESTER 06/24/2018 9:05 PM OB DETAILED EVAL 08/07/2016 8:20 AM. TECHNIQUE: Real-time sonographic evaluation of the fetus performed by the drywall contractor. Multiple outside dealer sales representative static images were saved for review. DATING: Established EGA 19 weeks 6 days with HIGINIO 02/17/2019 based on LMP. EGA 20 weeks 2 days with HIGINIO 02/14/2019 based on the current ultrasound. GENERAL EVALUATION Lu . Cardiac activity: 149 bpm. movement: Visualized. Presentation: Variable. Placenta: Anterior position. No evidence of previa. Umbilical cord: 3 vessel cord. Central placental cord origin. Amniotic fluid: Subjectively normal. MVP 5.8 cm. JACQUELINE 19.3 BIOMETRY Bi-Parietal Diameter (BPD): 4.8 cm, 20 weeks 4 days Head Circumference (HC): 17.4 cm, 19 weeks 6 days Abdominal Circumference (AC): 15.7 cm, 20 weeks 6 days Femur Length (FL): 3.2 cm, 19 weeks 6 days Estimated Weight: 354 g, 75th percentile for 19 weeks 6 days. ANATOMY The intracranial structures, profile, face/nose/lips, 4 chamber heart and outflow tracts, stomach, abdominal wall and cord insertion, diaphragm, kidneys, bladder, and extremities were visualized and demonstrate no abnormality. The spine is inadequately visualized. MATERNAL STRUCTURES Uterus: Unremarkable. Cervix: Long and closed. Transabdominal length greater than 4 cm. Right ovary/adnexa: Unremarkable. Left ovary/adnexa: Unremarkable. Free fluid: None. IMPRESSION: 1. Lu live intrauterine with gestational age weeks/days based on source of assigned dating. 2. Estimated weight is within expected limits for assigned dating. 3. Incomplete anatomic survey, inadequate visualization of the spine. No anatomic abnormalities are detected at this time. RADIA
== END 2018-09-29 07:43 | disposition home or self-care (01) ==
LOC: DI 07:42
PROVIDERS: ATTEND Registered Nurse
DX: Z36.89 Encounter for other specified antenatal screening (principal)
CPT/HCPCS: 76811

== ENCOUNTER 2018-10-27 08:56 | Outpatient (CLI) | payer OTHER ==
--- NOTE | 2018-10-27 12:21 | Ultrasound Report ---
Reason: ENCOUNTER FOR OTHER SPECIFIED SCREENING Procedure Date: 10/27/2018 Accession Number: [id number] / [id number] Procedure: US - OB F/U or Repeat CPT Code: FULL RESULT: EXAM: FOLLOW-UP OBSTETRICAL ULTRASOUND EXAM DATE: 10/27/2018 09:12 AM. CLINICAL HISTORY: Completion of anatomy survey. Previously incomplete visualization of the spine. COMPARISON: OB F/U OR REPEAT 11/29/2016 3:14 PM. TECHNIQUE: Real-time sonographic evaluation of the fetus performed by the headrig sawyer. Multiple mortician supplies sales representative static images were saved for review. DATING: Established EGA 23 weeks 6 days with HIGINIO 02/17/2019 based on working obstetric due date. GENERAL EVALUATION Lu . Cardiac activity: 152 bpm. movement: Visualized. Presentation: Breech. Placenta: Anterior position. Amniotic fluid: Normal. JACQUELINE 13.8 cm. MVP 5.3 cm. ANATOMY The spine is adequately visualized with no abnormalities detected. MATERNAL STRUCTURES Visualized cervix is long and closed. IMPRESSION: 1. Lu live intrauterine with gestational age 23 weeks 6 days based on working obstetric due date. 2. Adequate visualization of the spine with no abnormalities detected. RADIA
== END 2018-10-27 08:57 | disposition home or self-care (01) ==
LOC: DI 08:56
PROVIDERS: ATTEND Registered Nurse
DX: Z36.89 Encounter for other specified antenatal screening (principal)
CPT/HCPCS: 76816

== ENCOUNTER 2018-11-18 11:13 | Outpatient (CLI) | payer OTHER ==
[2018-11-18 12:57] LABS: HGB - HEMOGLOBIN 11.7 g/dL (12.0-16.0); MEAN CORPUSCULAR HEMOGLOBIN 29.6 pg (27.0-31.0); MEAN CORPUSCULAR HGB CONC 33.6 g/dL (32.0-36.0); MEAN CORPUSCULAR VOLUME 87.9 fL (81.0-99.0); MEAN PLATELET VOLUME 9.2 fL (7.9-10.8); RED BLOOD COUNT 3.94 10^6/uL (4.20-5.40); RED CELL DISTRIBUTION WIDTH 13.1 % (12.0-15.0); WHITE BLOOD COUNT 11.1 x10^3/uL (4.8-10.8)
== END 2018-11-18 11:14 | disposition home or self-care (01) ==
LOC: LAB 11:13
PROVIDERS: ATTEND Nurse Practitioner Obstetrics & Gynecology
DX: Z36.89 Encounter for other specified antenatal screening (principal)
CPT/HCPCS: 36415; 82950; 85027; 86850

== ENCOUNTER 2018-12-22 11:23 | Outpatient (CLI) | payer OTHER ==
--- NOTE | 2018-12-23 12:08 | Ultrasound Report ---
Reason: UTERINE SIZE DATE DISCREPANCY,THIRD TRIMESTER Procedure Date: 12/22/2018 Accession Number: [id number] / [id number] Procedure: US - OB F/U or Repeat CPT Code: FULL RESULT: EXAM: FOLLOW-UP OBSTETRICAL ULTRASOUND EXAM DATE: 12/22/2018 12:40 PM. CLINICAL HISTORY: Uterine size date discrepancy, third trimester. COMPARISON: OB F/U OR REPEAT 10/27/2018 9:12 AM OB DETAILED EVAL 09/29/2018 8:03 AM. TECHNIQUE: Real-time sonographic evaluation of the fetus performed by the delivery department supervisor. Multiple registration representative static images were saved for review. DATING: Established EGA 31 weeks 6 days with HIGINIO 02/17/2019 based on working due date. EGA 32 weeks 1 day with HIGINIO 02/15/2019 based on first ultrasound. EGA 33 weeks 1 day with HIGINIO 02/05/2019 based on the current ultrasound. GENERAL EVALUATION Ul . Cardiac activity: 136 bpm. movement: Visualized. Presentation: Cephalic. Placenta: Anterior position. Amniotic fluid: Normal. JACQUELINE 19 cm. MVP 6.5 cm. BIOMETRY Bi-Parietal Diameter (BPD): 8.7 cm, 35 weeks 1 day Head Circumference (HC): 31 cm, 34 weeks 0 days Abdominal Circumference (AC): 28.8 cm, 32 weeks 6 days Femur Length (FL): 6.3 cm, 33 weeks 4 days Estimated Weight: 2114 g, 78th percentile for 31 weeks 6 days. MATERNAL STRUCTURES Cervix is long and closed, 4.8 cm transabdominally. IMPRESSION: 1. Lu live intrauterine with gestational age 31 weeks 6 days based on working due date. 2. Estimated weight is within expected limits for assigned dating. 3. Normal interval growth compared to 09/29/2018. RADIA
== END 2018-12-22 11:24 | disposition home or self-care (01) ==
LOC: DI 11:23
PROVIDERS: ATTEND Nurse Practitioner Obstetrics & Gynecology
DX: O26.843 Uterine size-date discrepancy, third trimester (principal); Z3A.31 31 weeks gestation of pregnancy
CPT/HCPCS: 76816

== ENCOUNTER 2019-01-16 08:45 | Outpatient (CLI) | payer OTHER ==
[2019-01-16 09:10] LABS: BILIRUBIN,URINE NEGATIVE (NEGATIVE); GLUCOSE, URINE (UA) NEGATIVE (NEGATIVE); KETONES,URINE (UA) 15 mg/dL (NEGATIVE); LEUKOCYTE ESTERASE, URINE NEGATIVE (NEGATIVE); NITRITE,URINE NEGATIVE (NEGATIVE); OCCULT BLOOD,URINE MODERATE (NEGATIVE); PROTEIN,URINE NEGATIVE (NEGATIVE); UROBILINOGEN,URINE 0.2 (NORMAL) E.U./dL (NORMAL)
[2019-01-16 09:18] LABS: CLARITY,URINE CLEAR (CLEAR)
[2019-01-16 09:22] LABS: BACTERIA,URINE Rare /HPF (None Seen); RBC,URINE 0-5 /HPF (0-5); SQUAMOUS EPITHELIAL CELL,UR MOD Squamous (<= Few)
[2019-01-16 10:23] LABS: RUPTURE OF MEMBRANES PLUS POSITIVE (NEGATIVE)
[2019-01-16 11:37] LABS: RUPTURE OF MEMBRANES PLUS POSITIVE (NEGATIVE)
[2019-01-16] MEDS ORDERED: BETAMETHASONE 30 MG/5 ML VIAL IM ONE (12:10)
--- NOTE | 2019-01-16 15:45 | Ultrasound Report ---
Reason: vag. bleeding, leaking fluid Procedure Date: 01/16/2019 Accession Number: [id number] / [id number] Procedure: US - OB Limited CPT Code: FULL RESULT: EXAM: LIMITED OBSTETRICAL ULTRASOUND EXAM DATE: 01/16/2019 03:13 PM. CLINICAL HISTORY: Vaginal bleeding, leaking fluid. COMPARISON: None. TECHNIQUE: Real-time sonographic evaluation of the fetus performed by the digital assistant. Multiple clearance representative static images were saved for review. DATING: Established EGA 35 weeks 3 days with HIGINIO 02/17/2019. GENERAL EVALUATION Lu . Cardiac activity: 152 bpm. movement: Visualized. Presentation: Cephalic. Placenta: Anterior position. Amniotic fluid: Normal. JACQUELINE 17.3 cm. MVP 5.7 cm. MATERNAL STRUCTURES Long and closed transabdominal cervix, 4.2 cm. IMPRESSION: 1. Lu live intrauterine with gestational age 35 weeks 3 days based on working due date. 2. Normal amniotic fluid volume. RADIA
[2019-01-16 17:52] VITALS: BP 110/68
[2019-01-16 22:16] LABS: TRICHOMONAS VAGINALIS DNA NEGATIVE (NEGATIVE)
--- NOTE | 2019-01-31 04:29 | PROVIDER PROGRESS NOTE ---
- HPI Chief Complaint: Other (Ms Osullivan is a 23 yo at 35w3d with report of small passage of fluid, not on going. No CTX. Some spotting. + FM) Current : Current EDU 02/17/19 Gestation 35 Weeks and 3 Days 2 Para 1 Vital Signs Temperature 98.4 F 01/16/19 08:59 Heart Rate 99 01/16/19 08:59 Respiratory Rate 18 01/16/19 08:59 Blood Pressure 129/78 01/16/19 08:59 O2 Saturation 97 01/16/19 08:59 Temperature 98.2 F 01/16/19 16:30 Heart Rate 95 01/16/19 16:30 Respiratory Rate 18 01/16/19 16:30 Blood Pressure 110/68 01/16/19 16:30 O2 Saturation 98 01/16/19 16:30 - Exam GEN: NAD SVE: closed/long/high on serial exam EFM: 145 mod von 15x15 accels no decels TOCO: quiet ROM + positive x2 Neg pooling Nitrazine neg x2 Ferning x2 with 2 separate observers US: JACQUELINE 17.2 TACL: 4.3 cm - Procedures OB Procedure Performed: NST NST Procedure: CAT I tracing TOCO: quiet Service Date of procedure: 01/16/19 Procedure Details: NST RR TOCO: quiet ROM+ positive/ discordant with exam/ferning/nitrazne/pooling JACQUELINE 17.1; does not support active rupture - Plan Plan: Ruled out rupture Warning sgns reviewed BMZ 12g IM x1 given for possibility of late PTD GBS collected DC to home with close fu
== END 2019-01-16 17:30 | disposition home or self-care (01) ==
LOC: WFO 08:45 → FBP 08:47 → WFO 17:30
PROVIDERS: ATTEND Obstetrics & Gynecology
DX: O26.853 Spotting complicating pregnancy, third trimester (principal); Z3A.35 35 weeks gestation of pregnancy
CPT/HCPCS: 76815; 81001; 81003; 84112; 87081; 87491; 87591; 87661; 87797; 96372; 99213

== ENCOUNTER 2019-01-17 07:45 | Outpatient (CLI) | payer OTHER ==
[2019-01-17 08:27] VITALS: BP 140/83
[2019-01-17] MEDS ORDERED: SODIUM CHLORIDE FLUSH 0.9% 10 ML SYRINGE ONE ×2 (08:47→12:05)
[2019-01-17] MEDS ORDERED: LACTATED RINGERS 1,000 ML IV ONE ×2 (09:08)
[2019-01-17 09:17] LABS: BASOPHILS % (AUTO) 0.1 %; EOSINOPHILS % (AUTO) 0.1 %; HGB - HEMOGLOBIN 12.2 g/dL (12.0-16.0); LYMPHOCYTES # (AUTO) 1.8 10^3/uL (1.5-3.5); LYMPHOCYTES % (AUTO) 10.8 %; MEAN CORPUSCULAR HEMOGLOBIN 28.8 pg (27.0-31.0); MEAN CORPUSCULAR HGB CONC 32.2 g/dL (32.0-36.0); MEAN CORPUSCULAR VOLUME 89.6 fL (81.0-99.0); MEAN PLATELET VOLUME 11.7 fL (7.9-10.8); MONOCYTES # (AUTO) 0.8 10^3/uL (0.0-1.0); MONOCYTES % (AUTO) 4.6 %; NEUTROPHILS # (AUTO) 13.6 10^3/uL (1.5-6.6); NEUTROPHILS % (AUTO) 82.4 %; PLT - PLATELET COUNT 159 10^3/uL (130-450); RED BLOOD COUNT 4.23 10^6/uL (4.20-5.40); RED CELL DISTRIBUTION WIDTH 13.7 % (12.0-15.0); WHITE BLOOD COUNT 16.6 x10^3/uL (4.8-10.8)
[2019-01-17] MEDS ORDERED: TERBUTALINE 1 MG/ML VIAL SUBQ ONE ×3 (09:48→12:03)
[2019-01-17 10:24] LABS: BILIRUBIN,URINE NEGATIVE (NEGATIVE); CLARITY,URINE CLEAR (CLEAR); GLUCOSE, URINE (UA) NEGATIVE (NEGATIVE); KETONES,URINE (UA) 40 mg/dL (NEGATIVE); LEUKOCYTE ESTERASE, URINE TRACE (NEGATIVE); NITRITE,URINE NEGATIVE (NEGATIVE); OCCULT BLOOD,URINE TRACE-LYSE (NEGATIVE); PROTEIN,URINE NEGATIVE (NEGATIVE); UROBILINOGEN,URINE 0.2 (NORMAL) E.U./dL (NORMAL)
--- NOTE | 2019-01-17 10:49 | HISTORY & PHYSICAL EXAMINATION ---
Admit History - Visit Reason Visit Reason: Other ( labor) - Parity: 1 Care: positive: [facility] Risk/History: positive: None Complications This : positive: None Smoking Status: Never smoker - Mother's Labs Mother's Blood Type: positive: O Mother's RH: positive: Positive GBS: positive: Other Rubella Status: positive: Immune - Other Maternal History Other Maternal History: Ms Shi shannon a 23 yo at 35w4d with HIGINIO of 02/17/19 wo presents with labor. She was seen in triage yesterday on 01/16/19 with complaint of LOF. She was ROM+ positive x2 but had no pooling, was nitrazine negative and had negative ferning x2. JACQUELINE was assessed via formal us and returned at 17. SVE was closed, long, and high. She received betamethazone IM x1 and had GBS collected. GCCT was negative. She was discharged to home. She presented to triage today about about 9 am with contraction pain. Contractions were 6-10 minutes apart and painful. heartrate was tachycardic with baseline in the 160s and maternal BP was mildly elevated with SBPs in the low 140s and DBPs in the hgh 80s. She received a fluid bolus and heartrate has normalzed to a baseline of 150. She denies fever, headache, vision change, RUQ pain. PI labs are pending. PNL: O pos/ Ab neg/ Rub imm/ HIV neg/ RPR NR/ HepBsAg neg/GCCT neg Glucola 119 GBS pending TDAP given 11/24/18 Prior labor 16 hours and pushed for 3 hours per patient report. Meds/Allgy - Home Medications Home Medications: Ambulatory Orders Medication Instructions Recorded Confirmed Cephalexin [Keflex] 500 mg PO Q6HR #20 capsule 07/04/17 - Allergies Allergies/Adverse Reactions: Allergies Allergy/AdvReac Type Severity Reaction Status Date / Time No Known Drug Allergies Allergy Verified 07/04/17 19:56 Review of Systems - Constitutional Constitutional: reports: Other (As per HPI, remaining systems are negative) Physical - Abdominal Exam Vital Signs: Temp Pulse Resp BP Pulse Ox 98.4 F 98 20 140/83 H 100 01/17/19 07:53 01/17/19 07:53 01/17/19 07:53 01/17/19 08:21 01/17/19 07:53 Contraction Frequency (min/apart): Q 5 min Contraction Intensity: positive: Moderate to strong Uterine Resting Tone: positive: Soft - Monitoring Heart Rate Baseline: 150 Strip Review: positive: Category I - Presentation Presentation: positive: Vertex - Vaginal Exam Membranes: positive: Membranes intact Dilation (in cm): 6 Effacement (%): 70 Station: positive: -2 Cervical Position: positive: Midposition - Speculum Exam Speculum Exam Performed: positive: No Findings: positive: Other Plan for Labor - Plan For Labor I expect patient to be DC'd or transferred within 96 hours.: Yes Plan for Labor: 23 yo at 35+4 wga in labor. uncomplicated prior to presentation. PTL: Terbutaline given in attempt to stablze for transfer -Has received 1L fluid bolus ID: GBS unknown. Cultures collected -Starting ampicillin per hospital protocol for GBS -GCCT neg -No hx of HSV -UA wnl -Afebrile and WBC 16.6 after steroid exposure FWB: BMZ 12 mg M given 01/16/19 -Cat II tracng 2/2 tachycardia at presentation, now Cat I -Vertex -GBS ppx initiated -Pediatrics strongly recommends transfer if stable for transport.
[2019-01-17] MEDS ORDERED: AMPICILLIN 2 GM in SODIUM CHLORIDE 0.9% MINIBAG 100 ML IV ONE (11:00)
[2019-01-17] MEDS ORDERED: LACTATED RINGERS 1,000 ML IV SCH (12:00)
[2019-01-17] MEDS ORDERED: AMPICILLIN 1 GM in SODIUM CHLORIDE 0.9% MINIBAG 100 ML IV SCH (15:00)
== END 2019-01-17 12:08 | disposition short-term general hospital (02) ==
LOC: WFO 07:45 → FBP 07:48 → WFO 12:08
PROVIDERS: ATTEND Obstetrics & Gynecology
DX: O60.03 Preterm labor without delivery, third trimester (principal); Z3A.35 35 weeks gestation of pregnancy; O36.8330 Maternal care for abnormalities of the fetal heart rate or rhythm, third trimester, not applicable or unspecified; R03.0 Elevated blood-pressure reading, without diagnosis of hypertension
CPT/HCPCS: 81003; 84450; 85025; 96365; 96372; 99214; J7120; 82565; 82570; 82731; 84156; 84460

== ENCOUNTER 2019-01-17 12:10 | Outpatient (CLI) | payer OTHER | END 2019-01-17 12:11 | disposition short-term general hospital (02) | LOC: EMS 12:10 | PROVIDERS: ATTEND Surgery | DX: O60.03 Preterm labor without delivery, third trimester (principal); Z3A.35 35 weeks gestation of pregnancy | CPT/HCPCS: A0425; A0427 ==

== ENCOUNTER 2020-03-31 16:56 | Outpatient (CLI) | payer OTHER | END 2020-03-31 16:57 | disposition home or self-care (01) | LOC: COV 16:56 | PROVIDERS: ATTEND Family Medicine | DX: J02.9 Acute pharyngitis, unspecified (principal); Z20.828 Contact with and (suspected) exposure to other viral communicable diseases ==

== ENCOUNTER 2020-04-13 08:00 | Outpatient (CLI) | payer OTHER ==
[2020-04-13 18:33] LABS: BASOPHILS % (AUTO) 0.5 %; EOSINOPHILS # (AUTO) 0.4 10^3/uL (0.0-0.7); EOSINOPHILS % (AUTO) 4.9 %; HGB - HEMOGLOBIN 14.1 g/dL (12.0-16.0); LYMPHOCYTES # (AUTO) 1.6 10^3/uL (1.5-3.5); LYMPHOCYTES % (AUTO) 19.7 %; MEAN CORPUSCULAR HEMOGLOBIN 30.2 pg (27.0-31.0); MEAN CORPUSCULAR HGB CONC 33.1 g/dL (32.0-36.0); MEAN CORPUSCULAR VOLUME 91.2 fL (81.0-99.0); MEAN PLATELET VOLUME 11.6 fL (7.9-10.8); MONOCYTES # (AUTO) 0.5 10^3/uL (0.0-1.0); MONOCYTES % (AUTO) 5.8 %; NEUTROPHILS # (AUTO) 5.6 10^3/uL (1.5-6.6); NEUTROPHILS % (AUTO) 68.6 %; PLT - PLATELET COUNT 230 10^3/uL (130-450); RED BLOOD COUNT 4.67 10^6/uL (4.20-5.40); RED CELL DISTRIBUTION WIDTH 11.8 % (12.0-15.0); WHITE BLOOD COUNT 8.2 x10^3/uL (4.8-10.8)
[2020-04-13 19:00] LABS: ALBUMIN 4.4 g/dL (3.2-5.5); ALBUMIN/GLOBULIN RATIO 1.3 (1.0-2.2); ALKALINE PHOSPHATASE 70 IU/L (42-121); ALT ALANINE AMINOTRANSFERASE 44 IU/L (10-60); AST ASPARTATE AMINOTRANSFERASE 31 IU/L (10-42); BILIRUBIN,TOTAL 0.5 mg/dL (0.2-1.0); BUN - BLOOD UREA NITROGEN 10 mg/dL (6-20); CALCIUM 9.3 mg/dL (8.5-10.3); CARBON DIOXIDE - CO2 25 mmol/L (21-32); CHLORIDE 103 mmol/L (101-111); CREATININE 0.6 mg/dL (0.4-1.0); GLUCOSE 89 mg/dL (70-100); SODIUM 138 mmol/L (135-145); TOTAL PROTEIN 7.8 g/dL (6.7-8.2)
[2020-04-13 19:02] LABS: CRP - C-REACTIVE PROTEIN < 1.0 mg/dL (0-1.0)
== END 2020-04-13 23:59 | disposition home or self-care (01) ==
LOC: LAB.WCP 08:00
PROVIDERS: ATTEND Family Medicine
DX: R06.02 Shortness of breath (principal)
CPT/HCPCS: 36415; 80053; 84443; 85025; 85651; 86140

== ENCOUNTER 2020-05-11 20:00 | Outpatient (CLI) | payer OTHER | END 2020-05-11 20:01 | disposition home or self-care (01) | LOC: COV 20:00 | PROVIDERS: ATTEND Family Medicine | DX: R05 Cough (principal); R09.89 Other specified symptoms and signs involving the circulatory and respiratory systems; Z20.828 Contact with and (suspected) exposure to other viral communicable diseases ==